=== PATIENT | male | born 1945 | race Caucasian/White ===

== ENCOUNTER → 2019-07-19 08:28 | Outpatient (BNVA) | payer MEDICARE, OTHER, SELFPAY | PROVIDERS: Family Provider Family Medicine; PCP Family Medicine; Visit Provider Urology | DX: C61 Malignant neoplasm of prostate (principal); N39.9 Disorder of urinary system, unspecified; N52.34 Erectile dysfunction following simple prostatectomy; N39.3 Stress incontinence (female) (male) | CPT/HCPCS: 81001; 84153 ==

== ENCOUNTER → 2020-01-19 08:38 | Outpatient (BNVA) | payer MEDICARE, OTHER, SELFPAY | PROVIDERS: Family Provider Family Medicine; PCP Family Medicine; Visit Provider Urology | DX: C61 Malignant neoplasm of prostate (principal); N39.9 Disorder of urinary system, unspecified | CPT/HCPCS: 81001; 84153 ==

== ENCOUNTER → 2021-03-06 07:50 | Outpatient (BNVA) | payer MEDICARE, OTHER, SELFPAY | PROVIDERS: Family Provider Family Medicine; PCP Family Medicine; Visit Provider Urology | DX: C61 Malignant neoplasm of prostate (principal); N52.34 Erectile dysfunction following simple prostatectomy | CPT/HCPCS: 81003; 84153 ==

== ENCOUNTER → 2021-09-12 14:27 | Outpatient (BNVA) | payer MEDICARE, OTHER, SELFPAY | PROVIDERS: Family Provider Family Medicine; PCP Family Medicine; Visit Provider Internal Medicine | DX: I25.10 Atherosclerotic heart disease of native coronary artery without angina pectoris (principal); I50.9 Heart failure, unspecified; I44.7 Left bundle-branch block, unspecified; Z95.810 Presence of automatic (implantable) cardiac defibrillator; E78.5 Hyperlipidemia, unspecified; I42.9 Cardiomyopathy, unspecified | CPT/HCPCS: 99214 ==

== ENCOUNTER 2021-11-01 09:15 | Outpatient (CLI) | payer MEDICARE, OTHER, SELFPAY ==
--- NOTE | 2021-11-01 09:15 | USCV_ITS ---
Christian Ricky Age: 76 Gender: M : 1945 Exam Date: 11/01/2021 09:48 Ordering Phys: Kimo Aranda M.D ([email or web address]) Technologist: ABIEL Exam Location: [facility] Indication: SHORTNESS OF BREATH BP: 118 / 64 HR: 59 Rhythm: Sinus Technical Quality: Adequate MEASUREMENTS (Male / Female) Normal Values 2D ECHO LV Diastolic Diameter PLAX 4.8 cm 4.2 - 5.9 / 3.9 - 5.3 cm LV Systolic Diameter PLAX 4.2 cm IVS Diastolic Thickness 1.4 cm 0.6 - 1.0 / 0.6 - 0.9 cm IVS Systolic Thickness 1.8 cm LVPW Diastolic Thickness 1.4 cm 0.6 - 1.0 / 0.6 - 0.9 cm LVPW Systolic Thickness 1.4 cm LVOT Diameter 2.0 cm LV Ejection Fraction 2D Teich 29.6 % LV Ejection Fraction MOD 2C 40.0 % LV Ejection Fraction 2C AL 40.3 % LA Diameter 3.4 cm LA Width 4.1 cm LA Height 5.2 cm RA Width 3.8 cm RA Height 4.3 cm Aorta at Sinotubular Diameter 2.2 cm IVC Diameter 1.4 cm M-MODE Aortic Annulus Diameter 2.5 cm LA Ao Ratio MM 1.4 MV E Point Septal Separation 1.3 cm DOPPLER AV Peak Velocity 153.0 cm/s LVOT Peak Velocity 104.0 cm/s AV Area Cont Eq vti 2.1 cm squared AV Area Cont Eq pk 2.2 cm squared MV Peak Velocity 149.0 cm/s MV Area PHT 3.7 cm squared Mitral E to A Ratio 0.7 MV E' Velocity 49.0 cm/s Mitral E to MV E' Ratio 11.9 Mitral E to LV E' Lateral Ratio 10.1 Mitral E to LV E' Septal Ratio 14.6 TR Peak Velocity 247.1 cm/s TR Peak Gradient 24.4 mmHg TR Mean Velocity 198.1 cm/s TR Mean Gradient 17.3 mmHg TR Velocity Time Integral 94.1 cm TV Peak E Velocity 66.0 cm/s Right Atrial Pressure 3.0 mmHg Pulmonary Artery Systolic Pressu 27.4 mmHg PV Peak Velocity 105.0 cm/s RV Acceleration Time 0.0 s RV Ejection Time 0.3 s RV AcT/ET 0.1 FINDINGS Left Ventricle Technically limited quality echocardiogram because of poor ultrasonic windows. Normal left ventricular size.LV systolic function is moderately reduced with EF of 35-40%. Regional wall motion abnormalities cannot be assessed because of poor ultrasonic windows. Grade 1 diastolic dysfunction Right Ventricle The right ventricle is normal in size and function. Pacemaker lead is seen Right Atrium The right atrium is normal in size. Pacemaker lead is seen Left Atrium The left atrium is normal in size. Mitral Valve Structurally normal mitral valve without significant stenosis or prolapse. There is mild mitral regurgitation. Aortic Valve Structurally normal aortic valve without significant sclerosis or stenosis. There is no aortic regurgitation. Tricuspid Valve Structurally normal tricuspid valve without significant stenosis. Mild tricuspid regurgitation. Pulmonary artery systolic pressure is normal. Pulmonic Valve Not well-visualized Pericardium Normal pericardium without effusion. Aorta Normal ascending aorta dimension. IVC CONCLUSIONS Technically limited quality echocardiogram because of poor ultrasonic windows. LV systolic function is moderately reduced with EF 35 to 40%. Grade 1 diastolic dysfunction. Mild mitral regurgitation is seen. The mild tricuspid regurgitation is seen. Compared to prior echocardiogram from 2019, LV systolic function has improved from 20% at that time to 35-40% now Kimo Aranda MD (Electronically Signed) Final Date: 13 November 2021 16:33 S
== END 2021-11-01 09:16 | disposition home or self-care (01) ==
LOC: RAD 09:16
PROVIDERS: PCP Family Medicine; Visit Provider Internal Medicine
DX: R06.02 Shortness of breath (principal)
CPT/HCPCS: 93306

== ENCOUNTER 2022-03-08 15:16 | Outpatient (CLI) | payer MEDICARE, OTHER, SELFPAY ==
[2022-03-08 16:57] LABS: Prostate Specific AG Urology < 0.01 ng/mL (0-4)
== END 2022-03-08 15:17 | disposition home or self-care (01) ==
PROVIDERS: PCP Family Medicine; Visit Provider Urology
DX: C61 Malignant neoplasm of prostate (principal)
CPT/HCPCS: 84153

== ENCOUNTER → 2022-03-13 13:48 | Outpatient (BNVA) | payer MEDICARE, OTHER, SELFPAY | PROVIDERS: PCP Family Medicine; Visit Provider Internal Medicine | DX: I25.10 Atherosclerotic heart disease of native coronary artery without angina pectoris (principal); I50.9 Heart failure, unspecified; I44.7 Left bundle-branch block, unspecified; Z95.810 Presence of automatic (implantable) cardiac defibrillator; E78.5 Hyperlipidemia, unspecified; I42.9 Cardiomyopathy, unspecified | CPT/HCPCS: 99213; 99214 ==

== ENCOUNTER 2022-04-11 10:12 | Outpatient (CLI) | payer MEDICARE, OTHER, SELFPAY ==
[2022-04-11 11:04] LABS: Prostate Specific AG Urology < 0.01 ng/mL (0-4)
== END 2022-04-11 10:13 | disposition home or self-care (01) ==
LOC: LAB 10:13
PROVIDERS: PCP Family Medicine; Visit Provider Urology
DX: C61 Malignant neoplasm of prostate (principal)
CPT/HCPCS: 36415; 84153

== ENCOUNTER → 2022-04-24 10:41 | Outpatient (BNVA) | payer MEDICARE, OTHER, SELFPAY | PROVIDERS: PCP Family Medicine; Visit Provider Urology | DX: C61 Malignant neoplasm of prostate (principal); N52.34 Erectile dysfunction following simple prostatectomy | CPT/HCPCS: 81003; 99213 ==

== ENCOUNTER → 2022-09-11 14:51 | Outpatient (BNVA) | payer MEDICARE, OTHER, SELFPAY | PROVIDERS: PCP Family Medicine; Visit Provider Internal Medicine | DX: I25.10 Atherosclerotic heart disease of native coronary artery without angina pectoris (principal); I50.9 Heart failure, unspecified; I44.7 Left bundle-branch block, unspecified; Z95.810 Presence of automatic (implantable) cardiac defibrillator; E78.5 Hyperlipidemia, unspecified; I42.9 Cardiomyopathy, unspecified | CPT/HCPCS: 99214 ==

== ENCOUNTER 2023-01-14 09:05 | Outpatient (CLI) | payer MEDICARE, OTHER, SELFPAY ==
--- NOTE | 2023-01-14 09:18 | MM_ITS ---
WS: [id number] DIAGNOSTIC BILATERAL DIGITAL BREAST TOMOSYNTHESIS MAMMOGRAPHY WITH CAD HISTORY: Left breast mass, male patient. COMPARISON: None available. TECHNIQUE: Bilateral craniocaudad, mediolateral oblique, and mediolateral views are submitted with to mosdavid and SM. Spot compression view left MLO. Computer aided detection utilized. Breast composition: The breasts are almost entirely fatty. Area of increased density with infiltratio n posterior to the left nipple. Asymmetry is not directly in contact with the areolar region. This ar ea of spiculation and increased asymmetry measures approximately 2.7 x 1.6 cm. There is no nipple ret raction. This is asymmetric to the right breast. Evaluation of the left breast by mammography is limi steve due to the adjacent pacemaker generator. Left breast ultrasound, limited. Hypoechoic mass with dendritic extension posterior to the nipple measures 1.9 x 1.3 cm and is most co nsistent with gynecomastia. No significant increased vascularity. IMPRESSION: MM/[place] [id number] BI-RADS: 2-Benign FOLLOW UP: See Report Mammographic and ultrasound findings are most consistent with unilateral, left gynecomastia.
== END 2023-01-14 09:06 | disposition home or self-care (01) ==
PROVIDERS: PCP Family Medicine; Visit Provider Family Medicine
DX: N63.42 Unspecified lump in left breast, subareolar (principal)
CPT/HCPCS: 76642; 77062; G0279

== ENCOUNTER → 2023-06-11 12:44 | Outpatient (BNVA) | payer MEDICARE, OTHER, SELFPAY | PROVIDERS: PCP Family Medicine; Visit Provider Internal Medicine | DX: I25.10 Atherosclerotic heart disease of native coronary artery without angina pectoris (principal); I50.9 Heart failure, unspecified; I44.7 Left bundle-branch block, unspecified; Z95.810 Presence of automatic (implantable) cardiac defibrillator; E78.5 Hyperlipidemia, unspecified; I42.9 Cardiomyopathy, unspecified | CPT/HCPCS: 99214 ==

== ENCOUNTER → 2024-03-10 13:07 | Outpatient (BNVA) | payer MEDICARE, OTHER, SELFPAY | PROVIDERS: PCP Family Medicine; Visit Provider Internal Medicine | DX: I25.10 Atherosclerotic heart disease of native coronary artery without angina pectoris (principal); Z95.810 Presence of automatic (implantable) cardiac defibrillator; I50.9 Heart failure, unspecified; I44.7 Left bundle-branch block, unspecified; E78.5 Hyperlipidemia, unspecified; I42.9 Cardiomyopathy, unspecified | CPT/HCPCS: 99214 ==

== ENCOUNTER → 2024-12-08 13:38 | Outpatient (BNVA) | payer MEDICARE, OTHER, SELFPAY | PROVIDERS: PCP Family Medicine; Visit Provider Internal Medicine | DX: I25.10 Atherosclerotic heart disease of native coronary artery without angina pectoris (principal); I50.9 Heart failure, unspecified; I44.7 Left bundle-branch block, unspecified; I42.9 Cardiomyopathy, unspecified; E78.5 Hyperlipidemia, unspecified; Z95.810 Presence of automatic (implantable) cardiac defibrillator | CPT/HCPCS: 99214 ==